=== PATIENT | female | born 1975 | race Caucasian/White ===

== ENCOUNTER 2024-12-13 15:40 | Emergency (ER) | payer BC, SELFPAY ==
[2024-12-13 15:56] VITALS: BP 166/98; PULSE 98; RESP 18; TEMP 37.4; O2SAT 96
--- NOTE | 2024-12-13 16:17 | XR_ITS ---
Examination: CT abdomen and pelvis without contrast. Coronal 3-D reconstructions. Sagittal 2-D reconstructions. Date and time of exam:December 13, 2024 at 2034 hours, comparison June 12, 2019 INDICATIONS: Onset abdominal pain and epigastric pain today CTDI: vol (mGy): 10.7. DLP: (mGycm): 622. Technique: Axial images of the abdomen have been obtained, 3 mm slice thickness Intravenous contrast material has not been administered. Low dose protocols were performed. One or more of the following dose reduction techniques were used; automated exposure control, adjustment of the mA and/or KV according to patient size, use of iterative reconstruction technique. Findings: Diffuse fatty infiltration throughout the liver no focal liver or splenic lesions Absent gallbladder No pancreatic mass Mild nodular thickening of the left adrenal gland No renal or ureteral calculi, no hydronephrosis Aorta normal size No bowel obstruction Normal appendix Colonic diverticulosis Retroverted uterus No bowel obstruction or diverticulitis Urinary bladder intact Thoracolumbar spondylosis IMPRESSION: Significant diffuse fatty infiltration throughout the liver No renal or ureteral calculi, no hydronephrosis Normal appendix No bowel obstruction diverticulitis or free air Consider hepatobiliary sonography follow-up to better assess the common bile duct
--- NOTE | 2024-12-13 16:38 | EDRME_ITS ---
Rapid Medical Screening Exam RME Arrival date/time: 12/13/24 15:40 49-year-old female with no known medical history presents to the emergency room with a chief complaint of right-sided flank pain and suprapubic abdominal pain x 3 days I have greeted and performed a focused initial assessment of this patient. A c omprehensive ED assessment and evaluation of the patient, analysis of all test results, and completion of the medical decision making process will be conducted by additional ED providers. Chief Complaint: Abdominal Pain Time Seen by Provider: 12/13/24 16:01 Vital signs: Vital Signs Temperature 99.3 F 12/13/24 15:56 Pulse Rate 98 12/13/24 15:56 Respiratory Rate 18 12/13/24 15:56 Blood Pressure 166/98 H 12/13/24 15:56 Pulse Oximetry (%) 96 12/13/24 15:56 Oxygen Delivery Method Room Air 12/13/24 15:56 Vital signs reviewed by provider: Yes
[2024-12-13 17:20] LABS: Basophils # (Auto) 0.0 Thou/mm3 (0.0-0.2); Basophils % (Auto) 0 % (0-2.5); Eosinophils # (Auto) 0.1 Thou/mm3 (0.0-0.5); Eosinophils % (Auto) 1 % (0-10); Hematocrit 38.2 % (36.0-46.0); Hemoglobin 13.0 g/dL (12.0-16.0); Immature Granulocytes Auto 0.03 Thou/mm3 (0.00-0.00); Lymphocytes # (Auto) 2.1 Thou/mm3 (1.0-4.8); Lymphocytes % (Auto) 24 % (10-50); Mean Corpuscular HGB Conc 34.0 g/dl (31.0-37.0); Mean Corpuscular Hemoglobin 30.9 pg (25.0-35.0); Mean Corpuscular Volume 91 fL (80-100); Monocytes # (Auto) 0.7 Thou/mm3 (0.0-0.8); Monocytes % (Auto) 8 % (0-12); Neutrophils # (Auto) 5.8 Thou/mm3 (1.8-7.7); Neutrophils % (Auto) 66 % (37-80); Nucleated Red Blood Cell # 0.00 Thou/mm3 (0.00-0.00); Nucleated Red Blood Cell % 0 /100 WBC (0); Platelet Count 286 Thou/mm3 (140-440); RDW Standard Deviation 41.6 fL (36.4-46.3); Red Blood Count 4.21 Miln/mm3 (4.00-5.20); White Blood Count 8.7 Thou/mm3 (3.6-11.0)
[2024-12-13 17:46] LABS: Alanine Aminotransferase 29 U/L (10-49); Albumin, Serum 4.3 gm/dL (3.5-5.0); Albumin/Globulin Ratio 1.8 (1.2-2.2); Alkaline Phosphatase 66 U/L (46-116); Anion Gap 12 (7-16); Aspartate Amino Transferase 22 U/L (0-34); BUN/Creatinine Ratio 18 Ratio (12-20); Bilirubin,Total 0.3 mg/dL (0.3-1.2); Blood Urea Nitrogen 14 mg/dL (9-23); Calcium 9.9 mg/dL (8.3-10.6); Calcium (Corrected) 9.9 mg/dL (8.5-10.1); Carbon Dioxide 24.4 mMol/L (20.0-31.0); Chloride 108 mMol/L (98-107); Creatinine (Component) 0.8 mg/dL (0.6-1.3); Estimated Creatinine Clearance 101.9 mL/min (>60); Globulin 2.4 gm/dL (2.3-3.5); Glucose 107 mg/dL (74-106); Lipase 33 U/L (12-53); Osmolality,Calculated 287 (275-295); Potassium 3.9 mMol/L (3.4-5.1); Sodium 144 mMol/L (136-145); Total Protein 6.7 gm/dL (5.7-8.2); eGFR > 60 See Note
--- NOTE | 2024-12-13 19:10 | EDNOTE_ITS ---
ED Abdominal Pain RME/HPI General Chief Complaint: Abdominal Pain Stated complaint: ABD PAIN & BACK PAIN, 02/04 Time seen by provider: 12/13/24 16:01 Arrival date/time: 12/13/24 15:40 RME / HPI RME / HPI narrative: 12/13/24 15:40 49-year-old female with no known medical history presents to the emergency room with a chief complaint of right-sided flank pain and suprapubic abdominal pain x 3 days I have greeted and performed a focused initial assessment of this patient. A comprehensive ED assessment and evaluation of the patient, analysis of all test results, and completion of the medical decision making process will be conducted by additional ED providers. ------- See [facility] for HPI documentation. Related Data Previous Rx's ?Medication ?Instructions ?Recorded docusate sodium 100 mg capsule 100 mg PO BID #40 caps 07/22/19 hydrocodone 7.5 mg-acetaminophen 1 tab PO Q6HR PRN Melani n #20 tabs 07/22/19 325 mg tablet acetaminophen 300 mg-codeine 30 mg 2 tab PO Q8H PRN pa in #20 tabs 12/13/24 tablet Allergies Allergy/AdvReac Type Severity Reaction Status Date / Time No Known Allergies Allergy Verified 12/13/24 15:43 Review of Systems Review of Systems Systems Reviewed: All systems reviewed, normal except as documented Past Medical History Past Medical History NEUROLOGIC: Negative Seizures CARDIAC: Negative Cardiac Disorders, Congestive Heart Failure or Hypertension RESPIRATORY: Negative Chronic Obstructive Pulmonary Disease (COPD) GENITOURINARY: Negative Renal Disease ENT: Negative Glaucoma ENDOCRINE: Negative Diabetes Mellitus Type 1 or Diabetes Mellitus Type 2 HEMATOLOGIC: Negative Blood Disorders OTHER HISTORY: Negative Blood Transfusions, Blood Transfusion Reaction or Anesthesia Reactions Social History SMOKING STATUS: Never smoker SUBSTANCE USE: does not use ED Exam Narrative Physical exam: See [facility] for physical exam documentation. Course Quality Measures none Orders Category Date Time Status CT abdomen pelvis wo con Stat Exams 12/13/24 16:17 Completed CBC Stat Lab 12/13/24 16:40 Completed CMP [Comprehensive Metabolic Panel] Stat Lab 12/13/24 16:40 Completed HCG Qualitative,Urine Stat Lab 12/13/24 20:05 Completed HCG,Qualitative Serum Stat Lab 12/13/24 16:40 Completed Lipase Stat Lab 12/13/24 16:40 Completed UA [Urinalysis] Stat Lab 12/13/24 20:05 Completed Urine Culture Stat Lab 12/13/24 20:05 Received Vital Signs Vital signs: Vital Signs Temperature 99.3 F 12/13/24 15:56 Pulse Rate 98 12/13/24 15:56 Respiratory Rate 18 12/13/24 15:56 Blood Pressure 166/98 H 12/13/24 15:56 Pulse Oximetry (%) 96 12/13/24 15:56 Oxygen Delivery Method Room Air 12/13/24 15:56 Abdominal Pain MDM MDM Narrative MDM Narrative:: This section includes all my notes and documentations, including HPI, PE, and ED course. Petr Torres MD HPI: 49yo female here with right sided abdominal pain that radiates to her back for the last few weeks. Patient has been having this pain on and off for the last year and a half during her menses. Her menses ended on 12/01/24 and the pain has progressively gotten worse. Patient has nausea. No vomiting, abnormal vaginal bleeding, decreased intake, or hematuria. She took ibuprofen 800mg with relief. PSH includes cholecystectomy. No other complaints reported. ROS: All negative except as documented in HPI. Physical Exam: General: Alert and oriented. No acute distress when remaining still. Eyes: Conjunctivae and lids clear. ENT: No nasal congestion. Neck: Supple. Heart: RRR. Lungs: No respiratory distress. Good air movement. No rhonchi, wheezing, rales. Abdomen: Soft and nontender. Normal bowel sounds. No distension. No rebound or guarding. Back: No CVA tenderness. Skin: Warm and dry. Neuro: Alert and oriented X 3. I reviewed all diagnostic test results. My review of the CT abdomen pelvis report is NAD. Blood tests and urine tests are unremarkable. At this point, diagnoses include abdominal pain of unclear etiology. Recommend a more outpatient workup. Based on my best medical judgment, made decision no further evaluation or treatment indicated at this time. Patient understands and agrees to the discharge instructions customized and printed, see below. Discharge Instructions from Dr. Torres printed for you: 1. After extensive evaluation, exact cause of your abdominal pain was not determined. 2. But there is no emergency needing emergent diagnosis and treatment. 3. Tylenol with codeine for severe pain. 4. See a private doctor on 12/14/2024 for recheck and further care. Ask to review all test results and official radiology reports, to make sure you receive all necessary follow-ups and monitoring. To make sure there is no serious intra-abdominal condition, ask for help with more investigation not available here in the ER. Such as EGD or scoping the stomach, colonoscopy or scoping the colon, and referral to see lithographic camera operator. Ask for referrals to see other specialists, including l tacker. 5. Seek immediate medical care with worsening or with any concerns. Petr Torres MD Patient data External records reviewed:: [facility] previous records (Per chart review, patient was admitted here on 07/18/22 for acute calculous cholecystitis.) Clinical information provided by:: patient Social determinants that could affect healthcare access:: none Patient has the following chronic illnesses:: none How is presenting disease/condition affected by chronic disease/condition?: no chronic disease Evaluation data The following diagnostics were reviewed and interpreted by me:: lab results and radiology exam(s) Lab and/or radiology exams considered but not ordered:: none Interpretation Summary: I reviewed all diagnostic test results. My review of the CT abdomen pelvis report is NAD. Blood tests and urine tests are unremarkable. Medications / Prescriptions Medications or Prescriptions considered but not ordered:: none Medication administrations:: none Consultations Consultation(s) initiated? (list below): No Diagnosis Differential diagnosis abdominal pain: acute appendicitis, calculus of kidney, constipation, diverticulitis, endometriosis, gastroenteritis and pancreatitis Most likely diagnosis given after review of the tests above:: Abdominal pain of unclear etiology Admission Indicated Admission indicated?: not indicated Explain why admission is indicated or not indicated:: With no condition needing emergent intervention, there was no indication for admission. Admission Request Was there a request for admission?: No Disposition Plan Disposition Plan: Discharge Discharge Attestation Discharge Attestation: The patient and all family members were given an opportunity to ask questions and understood the discharge instructions. Discharge instructions specifically effects, indications for sooner follow up or return to the emergency department, and the expected course of current diagnosis. Patient condition: Stable Discharge Plan Plan Patient Disposition: HOME (Self Care) Prescriptions/Referrals Prescriptions/Med Rec: New acetaminophen-codeine 300-30 mg tablet 2 tab PO Q8H MDD 6 PRN (Reason: pain) Qty: 20 0RF No Action hydrocodone-acetaminophen 7.5-325 mg Tablet 1 tab PO Q6HR MDD 4 PRN (Reason: Pain) Qty: 20 0RF docusate sodium 100 mg Capsule 100 mg PO BID Qty: 40 0RF Referrals: Grant Desai MD [Primary Care Provider] - In 1 week Problem List Clinical Impression: Abdominal pain Patient/Caregiver Discharge Instructions Discharge Activity: activity as tolerated Education Materials: Abdominal Pain Additional Instructions: Discharge Instructions from Dr. Torres printed for you: 1. After extensive evaluation, exact cause of your abdominal pain was not determined. 2. But there is no emergency needing emergent diagnosis and treatment. 3. Tylenol with codeine for severe pain. 4. See a private doctor on 12/14/2024 for recheck and further care. Ask to review all test results and official radiology reports, to make sure you receive all necessary follow-ups and monitoring. To make sure there is no serious intra-abdominal condition, ask for help with more investigation not available here in the ER. Such as EGD or scoping the stomach, colonoscopy or scoping the colon, and referral to see lithographic camera operator. Ask for referrals to see other specialists, including l tacker. 5. Seek immediate medical care with worsening or with any concerns. Print Language: Tajik Stand Alone Forms: Michelle Award Info., Patient Portal Info Letter
[2024-12-13 19:47] LABS: HCG,Qualitative Serum Negative
[2024-12-13 20:07] LABS: Collection Type, Urine Clean Catch
[2024-12-13 20:23] LABS: Bacteria,Urine Rare; Bilirubin,Urine Negative (Negative); Blood,Urine 2+ (Negative); Calcium Oxalate Crystals,Urine 1+; Clarity,Urine Turbid (Clear/Hazy); Color,Urine Yellow (Lt Yel-Yel); Glucose, Urine Negative (Negative); Ketones,Urine Negative (Negative); Leukocyte Esterase,Urine Negative (Negative); Nitrite,Urine Negative (Negative); PH,Urine 6.0 (5.0-7.0); Protein,Urine 1+ (Neg - Trace); RBC,Urine 8 /hpf (0-3); Specific Gravity,Urine 1.035 (1.001-1.035); Squamous Epithelial Cell,Urine 12 /hpf (0-5); Urobilinogen,Urine Negative mg/dL (0.0-1.0); WBC,Urine 2 /hpf (0-5)
[2024-12-13 20:24] LABS: HCG Qualitative,Urine Negative
[2024-12-13 21:08] VITALS: BP 153/96; PULSE 96; RESP 18; TEMP 37.3; O2SAT 96
== END 2024-12-13 21:09 | disposition home or self-care (01) ==
PROVIDERS: Nurse Practitioner Family; Emergency Provider Emergency Medicine; PCP Internal Medicine
DX: R10.2 Pelvic and perineal pain (principal)
CPT/HCPCS: 36415; 74176; 80053; 81001; 81025; 83690; 84703; 85025; 87086; 99283

== ENCOUNTER → 2025-03-10 | Outpatient (CLI) | payer BC, SELFPAY ==
[2025-03-10 10:11] LABS: Basophils # (Auto) 0.0 Thou/mm3 (0.0-0.2); Basophils % (Auto) 0 % (0-2.5); Eosinophils # (Auto) 0.1 Thou/mm3 (0.0-0.5); Eosinophils % (Auto) 1 % (0-10); Hematocrit 38.3 % (36.0-46.0); Hemoglobin 12.8 g/dL (12.0-16.0); Immature Granulocytes Auto 0.02 Thou/mm3 (0.00-0.00); Lymphocytes # (Auto) 1.9 Thou/mm3 (1.0-4.8); Lymphocytes % (Auto) 28 % (10-50); Mean Corpuscular HGB Conc 33.4 g/dl (31.0-37.0); Mean Corpuscular Hemoglobin 30.0 pg (25.0-35.0); Mean Corpuscular Volume 90 fL (80-100); Monocytes # (Auto) 0.4 Thou/mm3 (0.0-0.8); Monocytes % (Auto) 6 % (0-12); Neutrophils # (Auto) 4.3 Thou/mm3 (1.8-7.7); Neutrophils % (Auto) 64 % (37-80); Nucleated Red Blood Cell # 0.00 Thou/mm3 (0.00-0.00); Nucleated Red Blood Cell % 0 /100 WBC (0); Platelet Count 299 Thou/mm3 (140-440); RDW Standard Deviation 40.7 fL (36.4-46.3); Red Blood Count 4.26 Miln/mm3 (4.00-5.20); White Blood Count 6.8 Thou/mm3 (3.6-11.0)
[2025-03-10 10:23] LABS: Glucose Estimated Average 117 mg/dL (80-131); Hemoglobin A1C 5.7 % Hgb (4.8-6.0)
[2025-03-10 10:26] LABS: Vitamin B12 191 pg/mL (211-911); Vitamin D 25 Hydroxy Total 38.2 ng/mL (7.3-40.2)
[2025-03-10 11:28] LABS: Collection Type, Urine Clean Catch
[2025-03-10 11:29] LABS: Alanine Aminotransferase 16 U/L (10-49); Albumin, Serum 4.5 gm/dL (3.5-5.0); Albumin/Globulin Ratio 2.1 (1.2-2.2); Alkaline Phosphatase 41 U/L (46-116); Anion Gap 10 (7-16); Aspartate Amino Transferase 19 U/L (0-34); BUN/Creatinine Ratio 14 Ratio (12-20); Bilirubin,Total 0.5 mg/dL (0.3-1.2); Blood Urea Nitrogen 11 mg/dL (9-23); Calcium 9.0 mg/dL (8.3-10.6); Calcium (Corrected) 9.0 mg/dL (8.5-10.1); Carbon Dioxide 26.0 mMol/L (20.0-31.0); Cardiac Risk Estimate 4.2 RATIO (3.7-5.6); Chloride 107 mMol/L (98-107); Cholesterol 245 mg/dL (132-200); Creatinine (Component) 0.8 mg/dL (0.6-1.3); Globulin 2.1 gm/dL (2.3-3.5); Glucose 102 mg/dL (74-106); HDL Cholesterol 58 mg/dL (40-60); LDH (Lactate Dehydrogenase) 180 U/L (120-246); LDL Cholesterol,Calculated 157 mg/dL (0-130); Magnesium 2.0 mg/dL (1.6-2.6); Osmolality,Calculated 284 (275-295); Phosphorous 2.7 mg/dL (2.4-5.1); Potassium 4.5 mMol/L (3.4-5.1); Sodium 143 mMol/L (136-145); Thyroid Stimulating Hormone 2.98 uIU/mL (0.55-4.78); Total Protein 6.6 gm/dL (5.7-8.2); Triglycerides 151 mg/dL (30-150); Uric Acid 5.9 mg/dL (3.1-7.8); eGFR > 60 See Note
[2025-03-10 12:04] LABS: Creatinine,Random Urine 150 mg/dL (30-125); Protein Total, Random Urine 70 mg/dL (1-14)
[2025-03-10 13:19] LABS: Bacteria,Urine 3+; Bilirubin,Urine Negative (Negative); Blood,Urine 2+ (Negative); Clarity,Urine Turbid (Clear/Hazy); Color,Urine Yellow (Lt Yel-Yel); Glucose, Urine Negative (Negative); Ketones,Urine Negative (Negative); Leukocyte Esterase,Urine Positive (Negative); Nitrite,Urine Negative (Negative); PH,Urine 6.0 (5.0-7.0); Protein,Urine 1+ (Neg - Trace); RBC,Urine 9 /hpf (0-3); Specific Gravity,Urine 1.027 (1.001-1.035); Squamous Epithelial Cell,Urine 49 /hpf (0-5); Urobilinogen,Urine Negative mg/dL (0.0-1.0); WBC,Urine 14 /hpf (0-5)
[2025-03-16 06:23] LABS: Cortisol,total,LC/MS/MS* 9.8 mcg/dL
== END | disposition home or self-care (01) ==
PROVIDERS: PCP Internal Medicine; Referring Provider Internal Medicine; Visit Provider Internal Medicine
DX: Z00.00 Encounter for general adult medical examination without abnormal findings (principal); I10 Essential (primary) hypertension
CPT/HCPCS: 36415; 80053; 80061; 81001; 82306; 82533; 82570; 82607; 83036; 83615; 83735; 84100; 84156; 84443; 84550; 85025